=== PATIENT | male | born 1980 | race African-American/Black ===

== ENCOUNTER 2016-09-21 19:43 | Emergency (ER) | payer OTHER ==
[~2016-09-21] VITALS: Ht 175.3 cm; Wt 82.1 kg
--- NOTE | 2016-09-21 20:11 | PHYS DOC ---
Adult General Chief Complaint Chief Complaint: HAND PROBLEM HPI HPI Patient is a 36 year old male presents to the emergency department stating that he should his right thumb into her car door today. Patient states that he has been having pain and discomfort at the DIP joint. Patient states that he has not taken anything for pain or discomfort. Minimal swelling is noted at this time. Review of Systems Review of Systems Constitutional: Denies fever or chills [] Eyes: Denies change in visual acuity, redness, or eye pain [] HENT: Denies nasal congestion or sore throat [] Respiratory: Denies cough or shortness of breath [] Cardiovascular: No additional information not addressed in HPI [] GI: Denies abdominal pain, nausea, vomiting, bloody stools or diarrhea [] : Denies dysuria or hematuria [] Musculoskeletal: Denies back pain. Complaint of right thumb pain and discomfort. Patient states he is right-handed Integument: Denies rash or skin lesions [] Neurologic: Denies headache, focal weakness or sensory changes [] Endocrine: Denies polyuria or polydipsia [] Physical Exam Physical Exam Constitutional: Well developed, well nourished, no acute distress, non-toxic appearance. [] HENT: Normocephalic, atraumatic, bilateral external ears normal, oropharynx moist, no oral exudates, nose normal. [] Eyes: PERRLA, EOMI, conjunctiva normal, no discharge. [] Neck: Normal range of motion, no tenderness, supple, no stridor. [] Cardiovascular:Heart rate regular rhythm, no murmur [] Lungs & Thorax: Bilateral breath sounds clear to auscultation [] Skin: Warm, dry, no erythema, no rash. [] Back: No tenderness Extremities: Right thumb at the DIP joint. Patient does have some bruising noted around the nail bed. Good sensation noted to the first finger. He is able to move the first finger without difficulty. Tenderness, no cyanosis, no clubbing, ROM intact, no edema. [] Neurologic: Alert and oriented X 3, normal motor function, normal sensory function, no focal deficits noted. [] Psychologic: Affect normal, judgement normal, mood normal. [] EKG EKG [] Radiology/Procedures Radiology/Procedures [] Course & Med Decision Making Course & Med Decision Making Pertinent Labs and Imaging studies reviewed. (See chart for details) X-rays with a questionable chip at the DIP joint. Per Dr. Villeda. Patient will be placed in a aluminum splint with recommendations to follow-up with orthopedic in the next week. Patient was encouraged to use Tylenol and ibuprofen for pain and discomfort. He'll be discharged home with recommendations for ice packs on 20 minutes off 20 minutes several times a day. Patient was provided with discharge instructions, treatment regimens and follow-up recommendations. Patient was provided with signs and symptoms to return back to the emergency department. All questions were answered for the patient at bedside. [] Dragon Disclaimer Dragon Disclaimer This electronic medical record was generated, in whole or in part, using a voice recognition dictation system. Departure Departure Impression: Primary Impression: Finger fracture, right Disposition: 01 HOME, SELF-CARE Condition: STABLE Referrals: NO PCP (PCP) MITZI LUND MD Patient Instructions: Finger Fracture Additional Instructions: Activity as tolerated. Tylenol or ibuprofen for pain and discomfort. Wear the aluminum splint to follow-up with orthopedic. Ice packs on 20 minutes off 20 minutes several times today. Elevation as much as possible. Follow-up with orthopedic within the next week. Return back to emergency department sign symptoms become worse. HUBER VERA APRN Sep 21, 2016 20:11
[2016-09-21 21:27] VITALS: BP 139/81
--- NOTE | 2016-09-22 12:35 | RAD ---
Three-view right thumb radiographs September 21, 2016 Clinical history: Injury to the right thumb. PA digital radiograph the right hand was obtained. Oblique and lateral digital radiographs of the right thumb were obtained. No fracture or dislocation of the right thumb is seen. No radiopaque foreign body is noted. Impression: No fracture or dislocation of the right thumb is seen.
== END 2016-09-21 20:45 | disposition home or self-care (01) ==
LOC: ER 19:43
DX: S62.501A Fracture of unspecified phalanx of right thumb, initial encounter for closed fracture (principal); X58.XXXA Exposure to other specified factors, initial encounter; Y93.89 Activity, other specified; Y99.8 Other external cause status; Y92.89 Other specified places as the place of occurrence of the external cause
CPT/HCPCS: 29130; 73140; 99284-25